=== PATIENT | male | born 1965 | race Caucasian/White ===

== ENCOUNTER 2017-06-17 16:10 | Inpatient (IN) | payer MEDICAID ==
[~2017-06-17] VITALS: Ht 167.6 cm; Wt 72.6 kg
[2017-06-17 16:20] VITALS: BP 204/114
--- NOTE | 2017-06-17 16:40 | NUR ---
PT COMES TO ED C/O RT EYE VISION BLURRINESS SINCE YESTERDAY. PT ALSO ADMITS TO NOT TAKING HIS HTN MEDICATION FOR 7 MONTHS DUE TO INSURANCE PROBLEMS. PT PLACED ON ALL MONIOTRS, HYPERTENSION OBSERVED AT 204/114. ACCUCHECK 277. MD MEJIA AT BEDSIDE TO EVAL. PT WITH EQUAL MEAT PROCESS WORKER/PUSHES, FACIAL SYMMETRY, CLEAR SPEECH, PERRLA. PT DENIES RICHARDS, N/V/SOB OR DIZZINESS.
[2017-06-17] MEDS ORDERED: ENALAPRILAT 2.5 MG/2 ML VIAL IVP ONE ×2 (16:45→17:55)
[2017-06-17] MEDS ORDERED: MORPHINE SULFATE 2 MG/ML SYR IVP ONE (16:45)
[2017-06-17] MEDS ORDERED: ONDANSETRON 4 MG/2 ML VIAL IVP ONE (16:45)
--- NOTE | 2017-06-17 16:48 | NUR ---
PT TO CT WITH TONO ROBLES, PORTABLE MONIOTR ON.
[2017-06-17 17:01] LABS: BASOPHILS # (AUTO) 0.1 K/uL (0.00-0.22); BASOPHILS % (AUTO) 0.8 % (0.0-2.0); EOSINOPHILS # (AUTO) 0.4 K/uL (0-0.4); EOSINOPHILS % (AUTO) 4.5 % (0.0-4.0); HEMATOCRIT 49.4 % (36-52); HEMOGLOBIN 17.1 g/dL (12.0-18.0); LYMPHOCYTES # (AUTO) 2.5 K/uL (2.0-11.5); LYMPHOCYTES % (AUTO) 29.2 % (20.5-51.1); MEAN CORPUSCULAR HEMOGLOBIN 29 pg (27-31); MEAN CORPUSCULAR HGB CONC 35 g/dL (33-37); MEAN CORPUSCULAR VOLUME 83.4 fL (80-94); MONOCYTES # (AUTO) 0.6 K/uL (0.8-1.0); MONOCYTES % (AUTO) 7.1 % (1.7-9.3); NEUTROPHILS # (AUTO) 5.1 K/uL (1.8-7.7); NEUTROPHILS % (AUTO) 58.4 % (42.2-75.2); PLATELET COUNT (AUTO) 227 K/uL (140-450); RED BLOOD CELL COUNT(AUTO) 5.93 MIL/uL (4.20-6.10); RED CELL DISTRIBUTION WIDTH 13.5 % (11.6-13.7); WHITE BLOOD COUNT (AUTO) 8.7 K/uL (4.8-10.8)
[2017-06-17 17:06] LABS: ANION GAP 12.7 (8-16); CARBON DIOXIDE 28.5 mmol/L (21-32); CREATININE 1.2 mg/dL (0.7-1.3); POTASSIUM 3.2 mmol/L (3.5-5.1)
[2017-06-17] MEDS ORDERED: MORPHINE SULFATE 4 MG/ML SYR ONE (17:08)
[2017-06-17 17:12] LABS: ALBUMIN 4.2 g/dL (3.4-5.0); TOTAL BILIRUBIN 0.6 mg/dL (0.0-1.0)
--- NOTE | 2017-06-17 17:20 | NUR ---
PT MEDICATED PER MD ORDER. PT IS TALKATIVE, ABLE TO EXPRESS NEEDS. DENIES ANY CHANGE IN CONDITION. PLACED ON ALL MONITORS, PENDING LABS/CT.
[2017-06-17 17:21] LABS: PROTHROMBIN TIME 10.1 secs (10.8-13.4)
--- NOTE | 2017-06-17 17:42 | NUR ---
DR MEJIA NOTIFIED OF PTS MOST RECENT BP 216/111. NO NEW ORDERS AT THIS TIME
[2017-06-17] MEDS ORDERED: POTASSIUM CHLORIDE 10 MEQ TABER PO ONE ×2 (17:55→20:15)
--- NOTE | 2017-06-17 18:43 | NUR ---
Patient will be admitted to care of [facility]. Admited to TELE. Will go to [id number]. Belongings list completed. Report to CHARGE AM RN BY TONO IQBAL FROM ER.
[2017-06-17] MEDS ORDERED: ACETAMINOPHEN 325 MG TAB PO PRN (19:05)
[2017-06-17] MEDS ORDERED: DEXTROSE 50% 50 ML SYR IVP PRN (19:05)
[2017-06-17] MEDS ORDERED: ONDANSETRON 4 MG/2 ML VIAL IVP PRN (19:05)
--- NOTE | 2017-06-17 19:20 | NUR ---
RECEIVED PT FROM SHERRI RN PT AAOX4 AMBULATORY HL ON RT FA PATENT, MRSA NARES SCREEN DONE AND SENT TO LAB PT ;ON TELEMETRY SR SKIN IS INTACT PT IS ORIENTED TO THE FLOOR CALL LIGHT WITHIN REACH RELATIVES AT BED SIDE PT DOES NOT COMPLAINT OF ANY DISCOMFORT AT THIS TIME
--- NOTE | 2017-06-17 19:45 | NUR ---
DR OLIVA IS HERE AND SEE THE PT AND WAS NOTIFY BP 180/105 HR 75 , PT WAS ALREADY MEDICATED IN ER FOR HIGH BP
[2017-06-17 20:00] VITALS: BP 180/105
[2017-06-17 20:00] LABS: HDL CHOLESTEROL 28 mg/dL (40-60); THYROID STIMULATING HORMONE 2.75 uIU/mL (0.34-3.74)
[2017-06-17 20:14] LABS: APPEARANCE,URINE CLEAR (CLEAR); BILIRUBIN,URINE NEGATIVE (NEGATIVE); BLOOD, URINE TRACE-I (NEGATIVE); LEUKOCYTE ESTERASE ,URINE NEGATIVE (NEGATIVE); NITRITE, URINE NEGATIVE (NEGATIVE); PH,URINE 6.5 (5.0-9.0); UGLUCOSE 3+ (NEGATIVE)
[2017-06-17 20:17] LABS: AMYLASE 44 U/L (25-115); CHOL/HDL RATIO 6.7 (1-4.5); LIPASE 179 U/L (73-393); PHOSPHORUS 3.6 mg/dL (2.5-4.9)
[2017-06-17 20:24] LABS: COLOR,URINE STRAW (YELLOW)
[2017-06-17 20:26] LABS: RBC,URINE 0-5 (RARE) /HPF (0-5); WBC,URINE 6-15 (FEW) /HPF (0-5)
[2017-06-17 20:31] LABS: TRIGLYCERIDES 920 mg/dL (30-150)
[2017-06-17 20:46] LABS: BARBITURATE, URINE NEG. ng/ml (NEG <=200); BENZODIAZEPINE, URINE NEG. ng/mL (NEG <=200); CANNABINOID, URINE NEG. ng/mL (NEG <=50); COCAINE, URINE NEG. ng/mL (NEG <=300); OPIATE, URINE NEG. ng/mL (NEG <=2000); PHENCYCLIDINE SCREEN,URINE NEG. ng/mL (NEG <=25)
[2017-06-17] MEDS ORDERED: ATENOLOL 50 MG TAB PO SCH (21:30)
[2017-06-17] MEDS ORDERED: MORPHINE SULFATE 4 MG/ML SYR IVP SCH (21:30)
--- NOTE | 2017-06-17 21:30 | NUR ---
BLOOD SUGAR TEST 217 COVERAGE WITH4 UNITS HUMALOG SUBQ FOLLOWING PROTOCOL AND HS SNACK IS PROVIDER
[2017-06-17] MEDS: BLOOD GLUCOSE MONITORING 1 DEV DEV FS SCH (21:45)
[2017-06-17] MEDS: INSULIN LISPRO SLIDING SCALE 100 UNITS/ML VIAL SUBQ PRN (21:51)
[2017-06-17] MEDS: DOCUSATE SODIUM 100 MG GELCAP PO SCH (21:55)
[2017-06-18] VITALS: BP 178/97
--- NOTE | 2017-06-18 | NUR ---
BLOOD PRESSURE 178/97 HR 58 AFTER MEGHANNORMTOMMIE OLIVA WAS NOTIFY
--- NOTE | 2017-06-18 01:39 | NUR ---
HR DROPP OFF TO [address] OLIVA WAS NOTIFY
[2017-06-18 04:00] VITALS: BP 198/98
--- NOTE | 2017-06-18 04:00 | NUR ---
[facility] [facility] PT RESTING ON BED DENIES ANY PAIN OR DISCOMFORT AT THIS TIME.
--- NOTE | 2017-06-18 04:40 | NUR ---
HR DROP OFF TO 39 DR OLIVA WAS NOTIFY , PT DENIES ANY PAIN OR DISCOMFORT AT THIS TIME
[2017-06-18] MEDS ORDERED: HYDROCHLOROTHIAZIDE 25 MG TAB PO SCH (04:45)
[2017-06-18] MEDS ORDERED: amLODIPine 5 MG TAB PO SCH (04:45)
[2017-06-18] MEDS ORDERED: LOSARTAN 50 MG TAB PO SCH (04:45)
[2017-06-18] MEDS: BLOOD GLUCOSE MONITORING 1 DEV DEV FS SCH ×4 (05:56→20:56)
[2017-06-18] MEDS: INSULIN LISPRO SLIDING SCALE 100 UNITS/ML VIAL SUBQ PRN ×3 (05:57→20:53)
--- NOTE | 2017-06-18 06:02 | NUR ---
MEDICATION FOR HIGH BP WAS GIVEN ORDER PT WILL BE MONITORING
--- NOTE | 2017-06-18 06:03 | NUR ---
BLOOD SUGAR TEST 253 COVERAGE WITH 6 UNITS SUBQ HUMALOG FOLLOWING PROTOCOL
[2017-06-18 06:20] LABS: BASOPHILS # (AUTO) 0.1 K/uL (0.00-0.22); BASOPHILS % (AUTO) 1.2 % (0.0-2.0); EOSINOPHILS # (AUTO) 0.5 K/uL (0-0.4); EOSINOPHILS % (AUTO) 7.5 % (0.0-4.0); HEMATOCRIT 46.8 % (36-52); HEMOGLOBIN 15.8 g/dL (12.0-18.0); LYMPHOCYTES # (AUTO) 2.3 K/uL (2.0-11.5); LYMPHOCYTES % (AUTO) 31.8 % (20.5-51.1); MEAN CORPUSCULAR HEMOGLOBIN 28 pg (27-31); MEAN CORPUSCULAR HGB CONC 34 g/dL (33-37); MEAN CORPUSCULAR VOLUME 84.3 fL (80-94); MONOCYTES # (AUTO) 0.5 K/uL (0.8-1.0); MONOCYTES % (AUTO) 6.8 % (1.7-9.3); NEUTROPHILS # (AUTO) 3.9 K/uL (1.8-7.7); NEUTROPHILS % (AUTO) 52.7 % (42.2-75.2); PLATELET COUNT (AUTO) 209 K/uL (140-450); RED BLOOD CELL COUNT(AUTO) 5.56 MIL/uL (4.20-6.10); RED CELL DISTRIBUTION WIDTH 13.5 % (11.6-13.7); WHITE BLOOD COUNT (AUTO) 7.3 K/uL (4.8-10.8)
[2017-06-18 06:39] LABS: ANION GAP 11.2 (8-16); CARBON DIOXIDE 28.5 mmol/L (21-32); CREATININE 1.1 mg/dL (0.7-1.3); POTASSIUM 3.7 mmol/L (3.5-5.1)
[2017-06-18 06:45] LABS: PHOSPHORUS 4.1 mg/dL (2.5-4.9)
[2017-06-18 08:00] VITALS: BP 201/104
--- NOTE | 2017-06-18 08:00 | NUR ---
INITIAL ASSESSMENT PERFORMED. PATIENT ALERT AND ABLE TO MAKE NEEDS KNOWN. NO ACUTE DISTRESS NOTED AT THIS TIME. PATIENT PATIENT DENIES PAIN AT THIS TIME.BP AT THIS TIME 201/104. DR GUO MADE AWARE DURING ROUNDS. PATIENT HAD RECEIVED BP MEDICATION AROUND 6AM PER BAND ATTACHER NURSE. WILL REASSESS. PATIENT WITH RFA 20G SL. PATIENT ON CCHO/CARDIAC DIET. PATENT AND INTACT. PATIENT ORIENTED TO ROOM. SKIN INTACT.PLAN OF CARE DISCUSSED WITH PATIENT. CALL LIGHT WITHIN REACH. WILL CONT TO MONITOR.
[2017-06-18] MEDS: DOCUSATE SODIUM 100 MG GELCAP PO SCH ×2 (08:31→21:11)
[2017-06-18] MEDS: GEMFIBROZIL 600 MG TAB PO SCH ×2 (08:31→17:04)
[2017-06-18] MEDS ORDERED: FENOFIBRATE 48 MG TAB PO SCH (09:00)
--- NOTE | 2017-06-18 09:08 | NUR ---
PATIENT HAS BEEN SCREENED AND CATEGORIZED MODERATE NUTRITION RISK. PATIENT WILL BE SEEN WITHIN 3-5 DAYS OF ADMISSION. 06/20/17 - 06/22/[address]
--- NOTE | 2017-06-18 10:30 | NUR ---
PATIENT BLOOD PRESSURE CONTINUALLY MONITORED MOST RECENT BP 178/99. DR GUO MADE AWARE. WILL CONT TO MONITOR. PATIENT SISTER AT BEDSIDE AT THIS TIME.WILL CONT TO MONITOR.
[2017-06-18] MEDS: HYDROcodone/APAP 7.5/325 MG 1 TAB PO PRN (11:28)
--- NOTE | 2017-06-18 11:30 | NUR ---
PATIENT C/O PAIN TO BACK OF HEAD 8/10 PAIN THROBBING. STATED ITS THE PAIN HE HAD BEEN EXPERIENCING BEFORE . MEDICATED PATIENT WITH NORCO. WILL REASSESS PATIENT.
[2017-06-18 12:00] VITALS: BP 184/93
[2017-06-18] MEDS ORDERED: LISINOPRIL 5 MG TAB PO SCH (13:21)
--- NOTE | 2017-06-18 14:00 | NUR ---
PATIENT ALERT AND ABLE TO MAKE NEEDS KNOWN. PATIENT WITH FAMILY AT BEDSIDE. BP 184/93.NO ACUTE DISTRESS NOTED. NO SOB. CALL LIGHT WITHIN REACH. WILL CONT TO MONITOR.
[2017-06-18 16:00] VITALS: BP 174/103
--- NOTE | 2017-06-18 16:30 | NUR ---
PATIENT ALERT AND ABLE TO MAKE NEEDS KNOWN. NO ACUTE DISTRESS. PATIENT BP 174/103, HR 60. NO SOB. RESP EVEN AND UNLABORED. CALL LIGHT WITHIN REACH. WILL CONT TO MONITOR.
--- NOTE | 2017-06-18 19:15 | NUR ---
ENDORSED REPORT AT BEDSIDE FOR CONTINUITY OF CARE. PATIENT STABLE.
--- NOTE | 2017-06-18 19:20 | NUR ---
RECEIVED PT FROM SHY RN PT AAOX4 COOPERATIVE HL ON RT FA PATENT ON TELEMETRY SB RELATIVES AT BED SIDE NOT DISTRESS NOTED INITIAL ASSESSMENT DONE
[2017-06-18 20:00] VITALS: BP 173/95
--- NOTE | 2017-06-18 21:30 | NUR ---
BLOOD SUGAR TEST 266 COVERAGE WITH 6 UNITS SUBQ HUMALOG FOLLOWING PROTOCOL, HS SNACK GIVEN ORDER
[2017-06-19] VITALS: BP 151/71
--- NOTE | 2017-06-19 01:27 | NUR ---
PT SLEEPING WELL ON TELEMETRY SB NOT SIGNSOFPAIN OR DISTRESS
[2017-06-19 04:00] VITALS: BP 139/71
--- NOTE | 2017-06-19 04:00 | NUR ---
SPONGE BATH GIVEN LINEN CHANGED ON TELEMETRY SB DENIES ANY PAIN AT THIS TIME , PT REPOSITIONED BP 139/71
[2017-06-19] MEDS: INSULIN LISPRO SLIDING SCALE 100 UNITS/ML VIAL SUBQ PRN ×4 (05:56→21:07)
[2017-06-19] MEDS: BLOOD GLUCOSE MONITORING 1 DEV DEV FS SCH ×4 (06:04→21:00)
[2017-06-19] MEDS: HYDROcodone/APAP 7.5/325 MG 1 TAB PO PRN (06:05)
--- NOTE | 2017-06-19 06:10 | NUR ---
BLOOD SUGAR TEST 205 COVERAGE WITH 4 UNITS SUB Q HUMALOG FOLLOWING PROTOCOL
[2017-06-19 07:01] LABS: BASOPHILS # (AUTO) 0.1 K/uL (0.00-0.22); BASOPHILS % (AUTO) 0.9 % (0.0-2.0); EOSINOPHILS # (AUTO) 0.5 K/uL (0-0.4); EOSINOPHILS % (AUTO) 5.8 % (0.0-4.0); HEMOGLOBIN 16.5 g/dL (12.0-18.0); LYMPHOCYTES # (AUTO) 2.2 K/uL (2.0-11.5); LYMPHOCYTES % (AUTO) 27.6 % (20.5-51.1); MEAN CORPUSCULAR HEMOGLOBIN 29 pg (27-31); MEAN CORPUSCULAR HGB CONC 34 g/dL (33-37); MEAN CORPUSCULAR VOLUME 83.5 fL (80-94); MONOCYTES # (AUTO) 0.6 K/uL (0.8-1.0); NEUTROPHILS # (AUTO) 4.6 K/uL (1.8-7.7); NEUTROPHILS % (AUTO) 57.7 % (42.2-75.2); PLATELET COUNT (AUTO) 225 K/uL (140-450); RED BLOOD CELL COUNT(AUTO) 5.75 MIL/uL (4.20-6.10); RED CELL DISTRIBUTION WIDTH 13.7 % (11.6-13.7); WHITE BLOOD COUNT (AUTO) 7.9 K/uL (4.8-10.8)
[2017-06-19] MEDS: GEMFIBROZIL 600 MG TAB PO SCH ×2 (07:19→17:05)
[2017-06-19 08:00] VITALS: BP 175/106
[2017-06-19 08:00] LABS: ANION GAP 12.4 (8-16); CARBON DIOXIDE 28.2 mmol/L (21-32); CREATININE 1.2 mg/dL (0.7-1.3); POTASSIUM 3.6 mmol/L (3.5-5.1)
--- NOTE | 2017-06-19 08:00 | NUR ---
INITIAL ASSESSMENT PERFORMED. PATIENT ALERT AND ABLE TO VERBALIZE NEEDS NO ACUTE DISTRESS. PATIENT DENIES PAIN AT THIS TIME. LUNG SOUNDS CLEAR. BOWEL SOUNDS ACTIVE LBM TODAY. VOIDING FREELY.ABLE TO AMBULATE IN HALLS WITHOUT DIFFICULTIES WHEN USING WALKER. SKIN INTACT. PLAN OF CARE DISCUSSED WITH PATIENT. PATIENT VERBALIZED UNDERSTANDING AND AGREEMENT. ORIENTED TO ROOM. CALL LIGHT WITHIN REACH. WILL CONT TO MONITOR.
[2017-06-19 08:13] LABS: PHOSPHORUS 5.2 mg/dL (2.5-4.9)
[2017-06-19] MEDS ORDERED: LOSARTAN 50 MG TAB PO SCH (09:00)
[2017-06-19] MEDS: ATENOLOL 50 MG TAB PO SCH (09:00)
[2017-06-19] MEDS ORDERED: LISINOPRIL 5 MG TAB PO SCH (09:00)
[2017-06-19] MEDS ORDERED: HYDROCHLOROTHIAZIDE 25 MG TAB PO SCH (09:00)
[2017-06-19] MEDS: ATORVASTATIN 20 MG TAB PO SCH (09:09)
[2017-06-19] MEDS: amLODIPine 5 MG TAB PO SCH (09:09)
[2017-06-19] MEDS: DOCUSATE SODIUM 100 MG GELCAP PO SCH ×2 (09:10→21:10)
--- NOTE | 2017-06-19 10:30 | NUR ---
PT ALERT AND ABLE TO MAKE NEEDS KNOWN. NO ACUTE DISTRESS NOTED. RESP EVEN AND UNLABORED. PATIENT WITH FAMILY AT BEDSIDE. CALL LIGHT WITHIN REACH. WILL CONT TO MONITOR.
[2017-06-19 12:00] VITALS: BP 184/100
--- NOTE | 2017-06-19 13:00 | NUR ---
REPORTED PATIENT BP THROUGHOUT MORNING IT FLUCTUATED BETWEEN 150-180 SBP, WITH NO NEW ORDERS. WILL CONT TO MONITOR PT.
--- NOTE | 2017-06-19 13:39 | NUR ---
*LATE ENTRY FOR 06/18/17 CM NOTE CHART REVIEW DONE
--- NOTE | 2017-06-19 15:30 | NUR ---
PATIENT ALERT AND ABLE TO VERBALIZE NEEDS . NO ACUTE DISTRESS. PLEASANT AND COOPERATIVE. FAMILY AT BEDSIDE. CALL LIGHT WITHIN REACH. WILL CONT TO MONITOR.
[2017-06-19 16:00] VITALS: BP 164/100
--- NOTE | 2017-06-19 17:30 | NUR ---
PATIENT EATING DINNER AT THIS TIME REQUESTED TUNA SANDWICH ALTERNATIVE TO DINNER. TOLERATING WELL. NO ACUTE DISTRESS NOTED. WILL CONT TO MONITOR.
--- NOTE | 2017-06-19 19:15 | NUR ---
ENDORSED REPORT TO CHEMICAL RESEARCH WORKER NURSE AT BEDSIDE FOR CONTINUITY OF CARE. PATIENT STABLE.
--- NOTE | 2017-06-19 19:15 | NUR ---
RECEIVED PATIENT LYING COMFORTABLE IN BED. EXPLAINED ABOUT PLAN OF CARE AND VERBALIZED UNDERSTANDING. CALL LIGHT WITHIN REACH. WILL CONTINUE TO MONITOR.
[2017-06-19 20:00] VITALS: BP 163/91
--- NOTE | 2017-06-19 21:00 | NUR ---
BLOOD SUGAR TEST 312 COVERAGE WITH 8 UNITS SUBQ HUMALOG FOLLOWING PROTOCOL. WILL CONTINUE TO MONITOR.
--- NOTE | 2017-06-19 23:15 | NUR ---
SEEN PATIENT ASLEEP COMFORTABLE IN BED BUT EASILY AROUSABLE. CALL LIGHT WITHIN REACH. WILL CONTINUE TO MONITOR.
[2017-06-20] VITALS: BP 159/92
--- NOTE | 2017-06-20 02:30 | NUR ---
SEEN PATIENT ASLEEP WITH CALL LIGHT LIGHT WITHIN REACH. NO S/S OF DISTRESS NOTED AT THIS TIME.
[2017-06-20 04:00] VITALS: BP 155/81
--- NOTE | 2017-06-20 05:40 | NUR ---
SEEN PATIENT AWAKE LYING COMFORTABLE ON BED. PATIENT ABLE TO GO TO BATHROOM USING FRONT WHEEL WALKER. BED IN LOW POSITION. CALL LIGHT WITHIN REACH.
[2017-06-20] MEDS: INSULIN LISPRO SLIDING SCALE 100 UNITS/ML VIAL SUBQ PRN ×2 (05:55→12:50)
--- NOTE | 2017-06-20 07:20 | NUR ---
ENDORSEMENT GIVEN TO AM SHIFT NURSE FOR CONTINUITY OF CARE. PATIENT IN STABLE CONDITION.
--- NOTE | 2017-06-20 07:20 | NUR ---
RECEIVED BEDSIDE REPORT FROM NIGHTSHIFT NURSE AT [facility]. PATIENT AWAKE AT THIS TIME. PATIENT ALERT AND ORIENTED X4. PATIENT DOES NOT COMPLAIN OF ANY PAIN AND HAS NO RESPIRATORY DISTRESS. PATIENT HAS AN IV NOTED ON HIS RIGHT FOREARM 20 G SALINE LOCK. UPDATED BOARD IN PATIENT'S ROOM. PUT CALL LIGHT WITHIN REACH OF PATIENT. WILL CONTINUE TO MONITOR PATIENT.
[2017-06-20] MEDS: BLOOD GLUCOSE MONITORING 1 DEV DEV FS SCH ×3 (07:30→16:30)
--- NOTE | 2017-06-20 07:30 | NUR ---
DID NOT SEE THAT AN BLOOD SUGAR CHECK WAS DUE AT THIS TIME. PATIENT ALERT AND ORIENTED X4. NO SIGNIFICANT SIGNS OF HYPER/HYPOGLYCEMIA.
[2017-06-20 08:00] VITALS: BP 155/91
[2017-06-20] MEDS: amLODIPine 5 MG TAB PO SCH (08:32)
[2017-06-20] MEDS: GEMFIBROZIL 600 MG TAB PO SCH (08:32)
[2017-06-20] MEDS: ATORVASTATIN 20 MG TAB PO SCH (08:32)
[2017-06-20] MEDS: ATENOLOL 50 MG TAB PO SCH (08:33)
[2017-06-20] MEDS: DOCUSATE SODIUM 100 MG GELCAP PO SCH (09:00)
[2017-06-20] MEDS ORDERED: HYDROCHLOROTHIAZIDE 25 MG TAB PO SCH ×2 (09:00)
[2017-06-20] MEDS ORDERED: LOSARTAN 50 MG TAB PO SCH (09:00)
--- NOTE | 2017-06-20 10:30 | NUR ---
PATIENT RESTING AT THIS TIME. PATIENT ASKED, "CAN YOU FOLLOW UP WITH TO SEE WHEN I WILL BE GOING HOME?". WILL FOLLOW UP WITH RESIDENT DOCTORS.
--- NOTE | 2017-06-20 11:40 | NUR ---
PATIENT RESTING AT THIS TIME. NO COMPLAINTS OF PAIN. WILL CONTINUE TO MONITOR PATIENT.
[2017-06-20 12:00] VITALS: BP 160/88
[2017-06-20] MEDS ORDERED: HYDR1TAB28 PO (13:03)
[2017-06-20] MEDS ORDERED: GEMF600T5 PO (13:10)
[2017-06-20] MEDS ORDERED: LANTUS SC (13:10)
[2017-06-20] MEDS ORDERED: ATEN50TA8 PO (13:10)
[2017-06-20] MEDS ORDERED: AMLO10TA PO (13:10)
--- NOTE | 2017-06-20 13:28 | NUR ---
PATIENT BLOOD PRESSURE STILL HIGH AT 166/79, [address] GUO SAID, "HE IS OKAY TO GO ONCE HIS BLOOD PRESSURE SYSTOLIC IS BELOW 160. WILL REASSESS BLOOD PRESSURE.
[2017-06-20] MEDS ORDERED: METF1000 PO (13:38)
[2017-06-20] MEDS ORDERED: GLIP5TAB4 PO (13:38)
--- NOTE | 2017-06-20 15:22 | NUR ---
PATIENT ASLEEP AT THIS TIME. NO COMPLAINTS OF PAIN OR RESPIRATORY DISTRESS. WILL CONTINUE TO MONITOR PATIENT.
[2017-06-20 16:00] VITALS: BP 163/89
--- NOTE | 2017-06-20 16:22 | NUR ---
DR. GUO IS OKAY WITH LAST BLOOD PRESSURE READING OF 162/77, 65 HR. WILL PREPARE DISCHARGE PAPERS FOR PATIENT.
--- NOTE | 2017-06-20 18:30 | NUR ---
PATIENT SIGNED ALL DISCHARGE INSTRUCTIONS AND IS AWARE OF PRESCRIPTIONS. PATIENT UNDERSTANDS ALL TEACHINGS. DISCONTINUED IV LINE WITH CATHETER INTACT. REMOVED ID BANDS OFF PATIENTS. REMOVED TELE BOX OFF OF PATIENT. PATIENT ABLE TO AMBULATE OFF THE UNIT WITH WALKER. WALKED PATIENT TO THE [facility]. PATIENT IN STABLE CONDITION.
== END 2017-06-20 18:30 | disposition home or self-care (01) | DRG 199 ==
LOC: MED 16:10 → MTU 18:31
PROVIDERS: ADMIT Family Medicine Sports Medicine; ATTEND Family Medicine Sports Medicine
DX: I16.0 Hypertensive urgency (principal); N17.0 Acute kidney failure with tubular necrosis; D68.59 Other primary thrombophilia; E11.65 Type 2 diabetes mellitus with hyperglycemia; I70.1 Atherosclerosis of renal artery; E11.51 Type 2 diabetes mellitus with diabetic peripheral angiopathy without gangrene; E87.6 Hypokalemia; E78.5 Hyperlipidemia, unspecified; I10 Essential (primary) hypertension; E78.00 Pure hypercholesterolemia, unspecified; G89.29 Other chronic pain; M54.5 Low back pain; H53.2 Diplopia; R74.0 Nonspecific elevation of levels of transaminase and lactic acid dehydrogenase [LDH]; Z79.4 Long term (current) use of insulin; Z91.14 Patient's other noncompliance with medication regimen; Z98.890 Other specified postprocedural states
CPT/HCPCS: 36415; 70450; 71045; 76705; 76770; 80048; 80053; 80305; 81001; 82150; 82948; 83036; 83690; 83735; 83880; 84100; 84439; 84443; 84484; 85025; 85610; 85730; 87081; 87086; 93005; 93925; 93970; 93976; 96374; 96375; 96376; 99291; J1815; J2270; J2405; J3490; Q0092